=== PATIENT | female | born 1960 | race Caucasian/White ===

== ENCOUNTER 2018-06-16 18:31 | Emergency (ER) | payer MEDICAID ==
[~2018-06-16] VITALS: Ht 170.2 cm; Wt 51.3 kg
[~2018-06-16 18:31] MED LIST: CLIN150C8 PO; CYCL10TA40 PO; HCTZ25T PO; METF-950 PO; PANT20TA3 PO; POTA8TAB8 PO; TOPI50TA24 PO; TRAM50TA2 PO
[2018-06-16 19:04] LABS: BASOPHILS # (AUTO) 0.1 X10'3 (0-0.2); BASOPHILS % (AUTO) 0.9 % (0-1); EOSINOPHILS # (AUTO) 0.1 X10'3 (0-0.9); EOSINOPHILS % (AUTO) 1.7 % (0-6); HEMATOCRIT 42.8 % (35.0-45.0); HEMOGLOBIN 14.5 g/dl (12.0-16.0); LYMPHOCYTES # (AUTO) 2.9 X10'3 (1.1-4.8); LYMPHOCYTES % (AUTO) 38.3 % (21-51); MEAN CORPUSCULAR HEMOGLOBIN 31.3 PG (27.0-31.0); MEAN CORPUSCULAR HGB CONC 33.9 % (33.0-36.5); MEAN CORPUSCULAR VOLUME 92.2 FL (78-98); MONOCYTES # (AUTO) 0.5 X10'3 (0-0.9); MONOCYTES % (AUTO) 6.3 % (2-12); NEUTROPHILS # (AUTO) 3.9 X10'3 (1.8-7.7); NEUTROPHILS % (AUTO) 52.8 % (42-75); PLATELET COUNT 217 X10'3 (140-440); RED BLOOD COUNT 4.64 X10'6 (4.20-5.60); RED CELL DISTRIBUTION WIDTH 13.3 % (11.5-14.5); WHITE BLOOD COUNT 7.5 X10'3 (4.5-11.0)
[2018-06-16 19:17] LABS: D-DIMER 0.53 MG/L FEU (0-0.50)
[2018-06-16 19:19] LABS: ALANINE AMINOTRANSFERASE 61 U/L (12-78); ALBUMIN 3.6 G/DL (3.4-5.0); ALKALINE PHOSPHATASE 127 IU/L (46-116); ANION GAP 10 (8-16); ASPARTATE AMINO TRANSFERASE 51 U/L (10-37); BILIRUBIN,TOTAL 0.3 MG/DL (0.1-1.0); BLOOD UREA NITROGEN 11 MG/DL (7-18); CALCIUM 8.6 MG/DL (8.5-10.1); CHLORIDE 101 MMOL/L (99-107); CREATININE 0.92 MG/DL (0.40-0.90); GLUCOSE 271 MG/DL (70-104); POTASSIUM 3.6 MMOL/L (3.5-5.1); SODIUM 138 MMOL/L (135-145); TOTAL CARBON DIOXIDE 26.9 MMOL/L (24-32); TOTAL PROTEIN 7.3 G/DL (6.4-8.2); eGFR 63 ML/MIN
[2018-06-16 19:26] LABS: MAGNESIUM 1.9 MG/DL (1.5-2.4); PHOSPHORUS 3.3 MG/DL (2.3-4.5)
[2018-06-16 19:30] LABS: CLARITY,URINE CLEAR (Clear); COLOR,URINE YELLOW (Yellow); GLUCOSE, URINE 500 mg/dl (Neg); KETONES,URINE NEGATIVE (Neg); LEUKOCYTE ESTERASE ,URINE NEGATIVE (Neg); NITRITES, URINE POSITIVE (Neg); OCCULT BLOOD,URINE TRACE-LYSED (Neg); PROTEIN,URINE NEGATIVE (Neg); UROBILINOGEN,URINE 0.2 E.U/dL (0.2-1.0)
[2018-06-16 19:36] LABS: UA COLLECTION TYPE VOIDED
[2018-06-16 19:37] LABS: WBC,URINE 0-4 /HPF (0-4)
[2018-06-16 19:38] LABS: BACTERIA,URINE 4+ /HPF (Neg); MUCUS STRANDS NONE SEEN /LPF (Neg); RBC,URINE 0-2 /HPF (0-2); SQUAMOUS EPITHELIAL CELL,UR FEW /LPF (FEW); WBC CLUMPS,URINE FEW /HPF (NEGATIVE)
[2018-06-16] MEDS ORDERED: DOXY100C43 PO (19:39)
[2018-06-16] MEDS ORDERED: PRED20TA PO (19:39)
[2018-06-16] MEDS ORDERED: ONDA4TAB12 PO (19:39)
[2018-06-16] MEDS: doxycycline hyclate 100mg tablet.DR PO STA (19:53)
[2018-06-16] MEDS: predniSONE 20 mg tablet PO ONE (19:53)
[2018-06-16 19:59] VITALS: BP 128/66
== END 2018-06-16 20:02 | disposition home or self-care (01) ==
LOC: ER 18:31
DX: J20.9 Acute bronchitis, unspecified (principal); E11.65 Type 2 diabetes mellitus with hyperglycemia; G89.29 Other chronic pain; F17.210 Nicotine dependence, cigarettes, uncomplicated; Z90.49 Acquired absence of other specified parts of digestive tract; Z90.710 Acquired absence of both cervix and uterus; Z98.890 Other specified postprocedural states; Z79.899 Other long term (current) drug therapy
CPT/HCPCS: 36415; 71046; 80053; 81001; 83735; 83880; 84100; 84484; 85025; 85379; 87077; 87088; 87186; 93005; 99285; J7512

== ENCOUNTER 2019-02-07 10:45 | Emergency (ER) | payer MEDICAID ==
[~2019-02-07] VITALS: Ht 167.6 cm; Wt 80.9 kg
[~2019-02-07 10:45] MED LIST changes: +ONDA4TAB12 PO
[2019-02-07 10:59] VITALS: BP 143/92
[2019-02-07] MEDS ORDERED: ketorolac trometh inj. 60 MG/2 ML VIAL IM ONE (11:30)
--- NOTE | 2019-02-07 13:03 | NUR ---
blanca wrapped left ankle and knee, put post op shoe over left foot
== END 2019-02-07 13:03 | disposition home or self-care (01) ==
LOC: ER 10:45
DX: S90.112A Contusion of left great toe without damage to nail, initial encounter (principal); M54.5 Low back pain; M79.672 Pain in left foot; M54.2 Cervicalgia; M25.562 Pain in left knee; E11.9 Type 2 diabetes mellitus without complications; G89.29 Other chronic pain; Z90.49 Acquired absence of other specified parts of digestive tract; Z90.710 Acquired absence of both cervix and uterus; Z98.890 Other specified postprocedural states; Z88.8 Allergy status to other drugs, medicaments and biological substances; Z79.84 Long term (current) use of oral hypoglycemic drugs; Z79.899 Other long term (current) drug therapy; W10.8XXA Fall (on) (from) other stairs and steps, initial encounter; Y93.89 Activity, other specified; Y92.89 Other specified places as the place of occurrence of the external cause; Y99.8 Other external cause status
CPT/HCPCS: 72100; 73560; 73630; 96372; 99284; J1885

== ENCOUNTER 2019-02-24 14:57 | Emergency (ER) | payer MEDICAID ==
[~2019-02-24] VITALS: Ht 167.6 cm; Wt 80.9 kg
[2019-02-24 17:31] VITALS: BP 122/81
[2019-02-24] MEDS ORDERED: DICL100G15 TOP (17:49)
[2019-02-24] MEDS ORDERED: IBUP-1985 PO (17:49)
== END 2019-02-24 17:59 | disposition home or self-care (01) ==
LOC: ER 14:57
DX: M94.0 Chondrocostal junction syndrome [Tietze] (principal); E11.9 Type 2 diabetes mellitus without complications; G89.29 Other chronic pain; Z90.710 Acquired absence of both cervix and uterus; Z90.49 Acquired absence of other specified parts of digestive tract; Z98.890 Other specified postprocedural states; Z88.8 Allergy status to other drugs, medicaments and biological substances; Z79.2 Long term (current) use of antibiotics; Z79.899 Other long term (current) drug therapy
CPT/HCPCS: 71046; 93005; 99283

== ENCOUNTER 2019-03-24 20:26 | Emergency (ER) | payer MEDICAID ==
[~2019-03-24] VITALS: Ht 167.6 cm; Wt 71.5 kg
[~2019-03-24 20:26] MED LIST changes: +DICL100G15 TOP; +IBUP-1985 PO
[2019-03-24 21:04] VITALS: BP 140/79
[2019-03-24 21:16] LABS: BASOPHILS # (AUTO) 0.1 X10'3 (0-0.2); BASOPHILS % (AUTO) 0.8 % (0-1); EOSINOPHILS # (AUTO) 0.1 X10'3 (0-0.9); EOSINOPHILS % (AUTO) 1.5 % (0-6); HEMATOCRIT 44.8 % (35.0-45.0); HEMOGLOBIN 15.1 g/dl (12.0-16.0); LYMPHOCYTES # (AUTO) 2.8 X10'3 (1.1-4.8); LYMPHOCYTES % (AUTO) 34.9 % (21-51); MEAN CORPUSCULAR HEMOGLOBIN 31.4 PG (27.0-31.0); MEAN CORPUSCULAR HGB CONC 33.7 g/dL (33.0-36.5); MEAN PLATELET VOLUME 7.6 FL (7.4-10.4); MONOCYTES # (AUTO) 0.6 X10'3 (0-0.9); MONOCYTES % (AUTO) 8.1 % (2-12); NEUTROPHILS # (AUTO) 4.3 X10'3 (1.8-7.7); NEUTROPHILS % (AUTO) 54.7 % (42-75); PLATELET COUNT 213 X10'3 (140-440); RED BLOOD COUNT 4.82 X10'6 (4.20-5.60)
[2019-03-24 21:28] LABS: ANION GAP 11 (8-16); BLOOD UREA NITROGEN 10 MG/DL (7-18); BUN/CREATININE RATIO 11.8 (6.6-38.0); CHLORIDE 103 MMOL/L (99-107); CREATININE 0.85 MG/DL (0.40-0.90); GLUCOSE 188 MG/DL (70-104); PARTIAL THROMBOPLASTIN TIME 27 SECONDS (22-32); POTASSIUM 3.5 MMOL/L (3.5-5.1); SODIUM 138 MMOL/L (135-145); TOTAL CARBON DIOXIDE 23.7 MMOL/L (24-32)
[2019-03-24 21:29] LABS: ALANINE AMINOTRANSFERASE 50 U/L (12-78); ALBUMIN 3.4 G/DL (3.4-5.0); ALBUMIN/GLOBULIN RATIO 0.9 (1.1-1.5); ALKALINE PHOSPHATASE 105 IU/L (46-116); ASPARTATE AMINO TRANSFERASE 28 U/L (10-37); BILIRUBIN,TOTAL 0.3 MG/DL (0.1-1.0); CALCIUM 8.3 MG/DL (8.5-10.1); TOTAL PROTEIN 7.2 G/DL (6.4-8.2); eGFR 69 ML/MIN
== END 2019-03-24 23:51 | disposition home or self-care (01) ==
LOC: ER 20:27
DX: R55 Syncope and collapse (principal); R11.2 Nausea with vomiting, unspecified; E78.00 Pure hypercholesterolemia, unspecified; I10 Essential (primary) hypertension; E11.9 Type 2 diabetes mellitus without complications; G89.29 Other chronic pain; Z90.49 Acquired absence of other specified parts of digestive tract; Z90.710 Acquired absence of both cervix and uterus; Z98.890 Other specified postprocedural states; Z88.8 Allergy status to other drugs, medicaments and biological substances; Z79.84 Long term (current) use of oral hypoglycemic drugs; Z79.899 Other long term (current) drug therapy
CPT/HCPCS: 36415; 71045; 80053; 82948; 84484; 85025; 85610; 85730; 93005; 99284

== ENCOUNTER 2021-07-13 16:06 | Emergency (ER) | payer MEDICAID ==
[~2021-07-13] VITALS: Ht 170.2 cm; Wt 72.7 kg
[~2021-07-13 16:06] MED LIST changes: +METF-1203 PO; -METF-950 PO; +PANT20TA18 PO; -PANT20TA3 PO
[2021-07-13 16:52] VITALS: BP 129/78
[2021-07-13] MEDS ORDERED: HYDR-3965 PO (17:00)
== END 2021-07-13 18:06 | disposition home or self-care (01) ==
LOC: ER 16:07
DX: M25.461 Effusion, right knee (principal); M25.561 Pain in right knee; M71.21 Synovial cyst of popliteal space [Baker], right knee; E78.00 Pure hypercholesterolemia, unspecified; I10 Essential (primary) hypertension; E11.9 Type 2 diabetes mellitus without complications; G89.29 Other chronic pain; Z90.49 Acquired absence of other specified parts of digestive tract; Z90.710 Acquired absence of both cervix and uterus; Z88.8 Allergy status to other drugs, medicaments and biological substances; Z79.899 Other long term (current) drug therapy
CPT/HCPCS: 73564; 99283

== ENCOUNTER 2021-07-27 10:43 | Emergency (ER) | payer MEDICAID ==
[~2021-07-27] VITALS: Ht 170.2 cm; Wt 72.7 kg
[~2021-07-27 10:43] MED LIST changes: +HYDR-3965 PO
[2021-07-27 11:28] VITALS: BP 111/77
[2021-07-27] MEDS ORDERED: BENZ-38 PO (14:06)
== END 2021-07-27 14:23 | disposition home or self-care (01) ==
LOC: ER 10:45
DX: J06.9 Acute upper respiratory infection, unspecified (principal); R50.9 Fever, unspecified; R05.9 Cough, unspecified; E78.00 Pure hypercholesterolemia, unspecified; I10 Essential (primary) hypertension; E11.9 Type 2 diabetes mellitus without complications; G89.29 Other chronic pain; F17.200 Nicotine dependence, unspecified, uncomplicated; Z90.49 Acquired absence of other specified parts of digestive tract; Z90.710 Acquired absence of both cervix and uterus; Z98.890 Other specified postprocedural states; Z88.8 Allergy status to other drugs, medicaments and biological substances; Z79.2 Long term (current) use of antibiotics; Z79.899 Other long term (current) drug therapy
CPT/HCPCS: 71045; 99283

== ENCOUNTER 2022-08-15 11:22 | Emergency (ER) | payer MEDICAID ==
[~2022-08-15] VITALS: Ht 167.6 cm; Wt 80.0 kg
[~2022-08-15 11:22] MED LIST changes: -HYDR-3965 PO
[2022-08-15 11:40] LABS: BASOPHILS % (AUTO) 0.6 % (0-1); EOSINOPHILS # (AUTO) 0.1 X10'3 (0-0.9); EOSINOPHILS % (AUTO) 1.6 % (0-6); HEMATOCRIT 37.7 % (35.0-45.0); LYMPHOCYTES # (AUTO) 1.4 X10'3 (1.1-4.8); LYMPHOCYTES % (AUTO) 29.8 % (21-51); MEAN CORPUSCULAR HEMOGLOBIN 26.9 PG (27.0-31.0); MEAN CORPUSCULAR HGB CONC 31.8 g/dL (33.0-36.5); MEAN CORPUSCULAR VOLUME 84.7 FL (78-98); MEAN PLATELET VOLUME 7.8 FL (7.4-10.4); MONOCYTES # (AUTO) 0.4 X10'3 (0-0.9); MONOCYTES % (AUTO) 7.9 % (2-12); NEUTROPHILS # (AUTO) 2.9 X10'3 (1.8-7.7); NEUTROPHILS % (AUTO) 60.1 % (42-75); PLATELET COUNT 131 X10'3 (140-440); RED BLOOD COUNT 4.45 X10'6 (4.20-5.60); RED CELL DISTRIBUTION WIDTH 15.3 % (11.5-14.5); WHITE BLOOD COUNT 4.8 X10'3 (4.5-11.0)
[2022-08-15 11:51] LABS: ALBUMIN 3.6 G/DL (3.4-5.0); ANION GAP 16 (8-16); BLOOD UREA NITROGEN 14 MG/DL (7-18); BUN/CREATININE RATIO 14.1 (6.6-38.0); CALCIUM 8.9 MG/DL (8.5-10.1); CHLORIDE 97 MMOL/L (99-107); CREATININE 0.99 MG/DL (0.40-0.90); MAGNESIUM 1.6 MG/DL (1.5-2.4); POTASSIUM 4.1 MMOL/L (3.5-5.1); SODIUM 135 MMOL/L (135-145); TOTAL CARBON DIOXIDE 21.9 MMOL/L (24-32); eGFR 57 ML/MIN
[2022-08-15 12:12] LABS: ALANINE AMINOTRANSFERASE 45 U/L (12-78); ALBUMIN/GLOBULIN RATIO 0.9 (1.1-1.5); ALKALINE PHOSPHATASE 159 IU/L (46-116); ASPARTATE AMINO TRANSFERASE 38 U/L (10-37); BILIRUBIN,TOTAL 0.4 MG/DL (0.1-1.0); TOTAL PROTEIN 7.8 G/DL (6.4-8.2)
[2022-08-15 12:15] LABS: GLUCOSE 450 MG/DL (70-104)
--- NOTE | 2022-08-15 12:15 | NUR ---
critical lab called glucose 450ml.
[2022-08-15] MEDS ORDERED: insulin regular, human 10 units/0.1 ml syringe SQ ONE (12:40)
[2022-08-15 12:46] VITALS: BP 123/70
== END 2022-08-15 13:15 | disposition home or self-care (01) ==
LOC: ER 11:23
DX: R07.81 Pleurodynia (principal); E11.9 Type 2 diabetes mellitus without complications; G89.29 Other chronic pain; M54.9 Dorsalgia, unspecified; E78.00 Pure hypercholesterolemia, unspecified; Z98.890 Other specified postprocedural states; Z88.8 Allergy status to other drugs, medicaments and biological substances; Z79.899 Other long term (current) drug therapy; Z79.1 Long term (current) use of non-steroidal anti-inflammatories (NSAID)
CPT/HCPCS: 36415; 71045; 80053; 82948; 83735; 83880; 84484; 85025; 93005; 99285

== ENCOUNTER 2023-06-02 18:18 | Emergency (ER) | payer MEDICAID ==
[~2023-06-02] VITALS: Ht 167.6 cm; Wt 70.8 kg
[~2023-06-02 18:18] MED LIST changes: +CLIN-214 PO; -CLIN150C8 PO; +TOPI-253 PO; -TOPI50TA24 PO
[2023-06-02 18:19] VITALS: BP 121/80; PULSE 89; RESP 16; TEMP 98.6; O2SAT 99
== END 2023-06-02 20:14 | disposition left against medical advice (07) ==
LOC: ER 18:19
DX: K08.89 Other specified disorders of teeth and supporting structures (principal); Z53.21 Procedure and treatment not carried out due to patient leaving prior to being seen by health care provider
CPT/HCPCS: 99281

== ENCOUNTER 2023-07-19 20:44 | Emergency (ER) | payer MEDICAID ==
[~2023-07-19] VITALS: Ht 154.9 cm; Wt 71.0 kg
[2023-07-19 20:47] VITALS: TEMP 99.6
[2023-07-19] MEDS ORDERED: normal saline 1000ml 1,000 ML IV ONE (21:00)
[2023-07-19] MEDS ORDERED: ondansetron/PF 4mg/2ml inj IV ONE (21:00)
[2023-07-19 21:20] LABS: BASOPHILS % (AUTO) 0.7 % (0-1); EOSINOPHILS # (AUTO) 0.1 X10'3 (0-0.9); EOSINOPHILS % (AUTO) 1.9 % (0-6); HEMATOCRIT 39.2 % (35.0-45.0); HEMOGLOBIN 13.3 g/dl (12.0-16.0); LYMPHOCYTES # (AUTO) 1.9 X10'3 (1.1-4.8); LYMPHOCYTES % (AUTO) 30.8 % (21-51); MEAN CORPUSCULAR VOLUME 91.2 FL (78-98); MEAN PLATELET VOLUME 7.8 FL (7.4-10.4); MONOCYTES # (AUTO) 0.3 X10'3 (0-0.9); MONOCYTES % (AUTO) 4.8 % (2-12); NEUTROPHILS # (AUTO) 3.8 X10'3 (1.8-7.7); NEUTROPHILS % (AUTO) 61.8 % (42-75); PLATELET COUNT 164 X10'3 (140-440); RED CELL DISTRIBUTION WIDTH 15.7 % (11.5-14.5); WHITE BLOOD COUNT 6.2 X10'3 (4.5-11.0)
[2023-07-19 21:38] VITALS: BP 110/73; PULSE 72; RESP 16; O2SAT 98
[2023-07-19 22:06] LABS: ALANINE AMINOTRANSFERASE 37 U/L (12-78); ALBUMIN 3.2 G/DL (3.4-5.0); ALKALINE PHOSPHATASE 94 IU/L (46-116); ANION GAP 10 (8-16); ASPARTATE AMINO TRANSFERASE 38 U/L (10-37); BILIRUBIN,TOTAL 0.4 MG/DL (0.1-1.0); BLOOD UREA NITROGEN 7 MG/DL (7-18); BUN/CREATININE RATIO 10.4 (10.0-20.0); CALCIUM 7.9 MG/DL (8.5-10.1); CHLORIDE 104 MMOL/L (99-107); CREATININE 0.67 MG/DL (0.40-0.90); ETHANOL 110 MG/DL (<10); GLUCOSE 118 MG/DL (70-104); POTASSIUM 3.3 MMOL/L (3.5-5.1); SODIUM 140 MMOL/L (135-145); TOTAL CARBON DIOXIDE 26.3 MMOL/L (24-32); TOTAL PROTEIN 6.3 G/DL (6.4-8.2); eCRCL 67 ML/MIN; eGFR 89 ML/MIN
== END 2023-07-19 21:59 | disposition home or self-care (01) ==
LOC: ER 20:45
DX: F10.129 Alcohol abuse with intoxication, unspecified (principal); R41.82 Altered mental status, unspecified; R47.81 Slurred speech; E78.00 Pure hypercholesterolemia, unspecified; E11.9 Type 2 diabetes mellitus without complications; G89.29 Other chronic pain; Z72.89 Other problems related to lifestyle; Z90.49 Acquired absence of other specified parts of digestive tract; Z90.710 Acquired absence of both cervix and uterus; Z88.8 Allergy status to other drugs, medicaments and biological substances; Z79.2 Long term (current) use of antibiotics; Z79.899 Other long term (current) drug therapy; Y90.9 Presence of alcohol in blood, level not specified
CPT/HCPCS: 36415; 80053; 80320; 82948; 85025; 96374; 99284; J2405; J7030; 93005

== ENCOUNTER 2023-08-09 13:36 | Emergency (ER) | payer MEDICAID ==
[~2023-08-09] VITALS: Ht 167.6 cm; Wt 70.2 kg
[2023-08-09 13:37] VITALS: BP 130/67; PULSE 71; TEMP 98.4; O2SAT 99
[2023-08-09 14:14] VITALS: RESP 16
[2023-08-09] MEDS ORDERED: NAPR-56 PO (15:27)
[2023-08-09] MEDS ORDERED: CYCL-1 PO (15:27)
--- NOTE | 2023-08-09 16:49 | NUR ---
I have reviewed and agree with all interventions, assessments performed and documented by Giselle NICOLE LVN.
== END 2023-08-09 15:41 | disposition home or self-care (01) ==
LOC: ER 13:36
DX: R07.81 Pleurodynia (principal); E78.00 Pure hypercholesterolemia, unspecified; E11.9 Type 2 diabetes mellitus without complications; G89.29 Other chronic pain; Z90.49 Acquired absence of other specified parts of digestive tract; Z90.710 Acquired absence of both cervix and uterus; Z98.890 Other specified postprocedural states; Z72.89 Other problems related to lifestyle; Z88.1 Allergy status to other antibiotic agents; Z88.8 Allergy status to other drugs, medicaments and biological substances; Z79.84 Long term (current) use of oral hypoglycemic drugs; Z79.899 Other long term (current) drug therapy
CPT/HCPCS: 71101; 99284

== ENCOUNTER 2024-06-10 16:24 | Inpatient (IN) | payer OTHER, MEDICAID ==
[2024-06-09] MEDS: tenecteplase 50mg kit IV ONE (17:37)
[~2024-06-10] VITALS: Ht 167.6 cm; Wt 68.2 kg
[~2024-06-10 16:24] MED LIST changes: +CYCL-1 PO; +ONDA-243 PO; -ONDA4TAB12 PO; -TOPI-253 PO; +TOPI-95 PO
[2024-06-10] MEDS ORDERED: iohexol 350MG/ML 100ml bottle IV ONE (17:28)
[2024-06-10] MEDS: ondansetron/PF 4mg/2ml inj IV ONE (17:38)
[2024-06-10] MEDS: morphine 4 MG/ML inj SYRINge IV ONE (17:39)
[2024-06-10 17:49] LABS: ALBUMIN 3.7 G/DL (3.4-5.0); ANION GAP 12 (8-16); BLOOD UREA NITROGEN 8 MG/DL (7-18); BUN/CREATININE RATIO 9.6 (10.0-20.0); CALCIUM 8.2 MG/DL (8.5-10.1); CHLORIDE 102 MMOL/L (99-107); CREATININE 0.83 MG/DL (0.40-0.90); GLUCOSE 140 MG/DL (70-104); POTASSIUM 3.5 MMOL/L (3.5-5.1); SODIUM 137 MMOL/L (135-145); TOTAL CARBON DIOXIDE 22.7 MMOL/L (24-32); eCRCL 66 ML/MIN; eGFR 70 ML/MIN
[2024-06-10 17:52] LABS: BASOPHILS # (AUTO) 0.1 X10'3 (0-0.2); BASOPHILS % (AUTO) 0.9 % (0-1); EOSINOPHILS # (AUTO) 0.1 X10'3 (0-0.9); EOSINOPHILS % (AUTO) 1.2 % (0-6); HEMATOCRIT 39.1 % (35.0-45.0); HEMOGLOBIN 13.2 g/dl (12.0-16.0); LYMPHOCYTES # (AUTO) 1.8 X10'3 (1.1-4.8); LYMPHOCYTES % (AUTO) 27.1 % (21-51); MEAN CORPUSCULAR HEMOGLOBIN 30.6 PG (27.0-31.0); MEAN CORPUSCULAR HGB CONC 33.8 g/dL (33.0-36.5); MEAN CORPUSCULAR VOLUME 90.4 FL (78-98); MEAN PLATELET VOLUME 8.3 FL (7.4-10.4); MONOCYTES # (AUTO) 0.3 X10'3 (0-0.9); MONOCYTES % (AUTO) 5.3 % (2-12); NEUTROPHILS # (AUTO) 4.3 X10'3 (1.8-7.7); NEUTROPHILS % (AUTO) 65.5 % (42-75); PLATELET COUNT 175 X10'3 (140-440); RED BLOOD COUNT 4.32 X10'6 (4.20-5.60); RED CELL DISTRIBUTION WIDTH 14.9 % (11.5-14.5); WHITE BLOOD COUNT 6.5 X10'3 (4.5-11.0)
[2024-06-10 18:23] LABS: APTT 26 SECONDS (22-32); INR 1.1 INR
[2024-06-10 19:39] LABS: BILIRUBIN,URINE NEGATIVE (Neg); CLARITY,URINE CLEAR (Clear); COLOR,URINE YELLOW (Yellow); GLUCOSE, URINE NEGATIVE (Neg); KETONES,URINE NEGATIVE (Neg); LEUKOCYTE ESTERASE ,URINE NEGATIVE (Neg); NITRITES, URINE POSITIVE (Neg); OCCULT BLOOD,URINE NEGATIVE (Neg); PROTEIN,URINE NEGATIVE (Neg); UROBILINOGEN,URINE 0.2 E.U/dL (0.2-1.0)
[2024-06-10 19:43] LABS: URINE HCG NEGATIVE (NEG)
[2024-06-10 19:45] LABS: UA COLLECTION TYPE CLN CATCH MIDSTREAM
[2024-06-10 20:10] LABS: BACTERIA,URINE 3+ /HPF (Neg); MUCUS STRANDS NONE SEEN /LPF (Neg); RBC,URINE 0-2 /HPF (0-2); SQUAMOUS EPITHELIAL CELL,UR FEW /LPF (FEW); WBC,URINE 0-4 /HPF (0-4)
[2024-06-10] MEDS ORDERED: potassium Cl 40MEQ/1/2NS 520ml 520 ML IV PRN (20:40)
[2024-06-10] MEDS ORDERED: magnesium hydroxide 30ml (MOM) UD suspension PO PRN (20:40)
[2024-06-10] MEDS ORDERED: mag hydrox/Alum hydrox/simeth 30ml oral suspension PO PRN (20:40)
[2024-06-10] MEDS ORDERED: PERFLUTREN PROTEIN-A MICROSPHR (Optison) 0.22 MG/ML 3ML VIAL IV PRN (20:40)
[2024-06-10] MEDS ORDERED: magnesium sulf-water 2g/50mL 50 ML IV PRN (20:40)
[2024-06-10] MEDS ORDERED: potassium Cl 20 mEq SR tablet PO PRN ×2 (20:40)
[2024-06-10] MEDS ORDERED: magnesium sulf-water 4G/100mL 100 ML IV PRN (20:40)
[2024-06-10 21:26] LABS: HEMOGLOBIN A1C 5.8 % (4.5-6.2)
[2024-06-10] MEDS: normal saline 1000ml 1,000 ML IV SCH (21:34)
[2024-06-10] MEDS ORDERED: GABAPENTIN (22:13)
[2024-06-10] MEDS ORDERED: SIMV-42 PO (22:13)
[2024-06-10] MEDS ORDERED: FEXO-310 PO (22:13)
[2024-06-10] MEDS ORDERED: SEMA1PEN3 SQ (22:13)
[2024-06-11] VITALS (14 sets, daily range): BP systolic 88–125; BP diastolic 55–76; PULSE 64–83; RESP 10–17; TEMP 97.3–98; O2SAT 95–99
[2024-06-11 02:54] LABS: BASOPHILS % (AUTO) 0.7 % (0-1); EOSINOPHILS # (AUTO) 0.1 X10'3 (0-0.9); EOSINOPHILS % (AUTO) 2.8 % (0-6); HEMATOCRIT 34.8 % (35.0-45.0); HEMOGLOBIN 11.9 g/dl (12.0-16.0); LYMPHOCYTES % (AUTO) 43.1 % (21-51); MEAN CORPUSCULAR HEMOGLOBIN 30.8 PG (27.0-31.0); MEAN CORPUSCULAR HGB CONC 34.3 g/dL (33.0-36.5); MONOCYTES # (AUTO) 0.4 X10'3 (0-0.9); MONOCYTES % (AUTO) 7.6 % (2-12); NEUTROPHILS # (AUTO) 2.1 X10'3 (1.8-7.7); NEUTROPHILS % (AUTO) 45.8 % (42-75); PLATELET COUNT 148 X10'3 (140-440); RED BLOOD COUNT 3.86 X10'6 (4.20-5.60); RED CELL DISTRIBUTION WIDTH 14.6 % (11.5-14.5); WHITE BLOOD COUNT 4.7 X10'3 (4.5-11.0)
[2024-06-11 03:13] LABS: ALANINE AMINOTRANSFERASE 17 U/L (12-78); ALBUMIN 3.1 G/DL (3.4-5.0); ALKALINE PHOSPHATASE 78 IU/L (46-116); ANION GAP 10 (8-16); ASPARTATE AMINO TRANSFERASE 14 U/L (10-37); BILIRUBIN,TOTAL 0.3 MG/DL (0.1-1.0); BLOOD UREA NITROGEN 7 MG/DL (7-18); BUN/CREATININE RATIO 10.3 (10.0-20.0); CHLORIDE 107 MMOL/L (99-107); CHOL/HDL RATIO 1.9 (0.00-4.99); CHOLESTEROL 102 MG/DL (0-200); CREATININE 0.68 MG/DL (0.40-0.90); GLUCOSE 90 MG/DL (70-104); HDL CHOLESTEROL 55 MG/DL (35-60); LDL CHOLESTEROL 44 MG/DL (50-100); MAGNESIUM 1.4 MG/DL (1.5-2.4); POTASSIUM 3.6 MMOL/L (3.5-5.1); SODIUM 143 MMOL/L (135-145); TOTAL PROTEIN 6.2 G/DL (6.4-8.2); TRIGLYCERIDES 85 MG/DL (20-135); eCRCL 80 ML/MIN; eGFR 88 ML/MIN
[2024-06-11] MEDS: ondansetron/PF 4mg/2ml inj IV PRN (04:55)
[2024-06-11] MEDS: morphine 2 MG/ML inj. syringe IV PRN (04:55)
[2024-06-11] MEDS: gabapentin 400mg capsule PO ONE (06:52)
[2024-06-11] MEDS ORDERED: tenecteplase 50mg kit IV ONE (08:00)
[2024-06-11] MEDS: K and/or MAG REPLACEMENT MC SCH (08:00)
[2024-06-11] MEDS ORDERED: LOSA100T58 PO (10:51)
[2024-06-11] MEDS ORDERED: LANS30CA56 PO (10:51)
[2024-06-11] MEDS ORDERED: GABA300C PO (10:51)
[2024-06-11] MEDS ORDERED: EZET10TA48 PO (10:51)
[2024-06-11] MEDS ORDERED: METF-900 PO (10:51)
[2024-06-11] MEDS ORDERED: CHOL200042 PO (10:51)
[2024-06-11] MEDS ORDERED: MULT-1085 PO (10:51)
[2024-06-11] MEDS ORDERED: OMEG10006 PO (10:51)
[2024-06-11] MEDS ORDERED: glucagon, human recombinant 1mg kit SUBCUT PRN (10:55)
[2024-06-11] MEDS ORDERED: DEXTROSE 15 GM of carb/4 tabs (each vial/BOTTLE has 4 tablets) PO PRN ×2 (10:55)
[2024-06-11] MEDS ORDERED: dextrose 50%-water 50ml dispensing syringe IV PRN ×2 (10:55)
[2024-06-11] MEDS ORDERED: INSULIN LISPRO 100 UNIT/ML INSULN.PEN MULTI-DOSE SQ SCH ×2 (12:00→13:00)
[2024-06-11] MEDS: docusate sod 100mg capsule PO SCH (13:06)
[2024-06-11] MEDS: nicotine 14mg patch - 24hr TD SCH (13:06)
[2024-06-11] MEDS: magnesium Cl slow-release 64mg tablet PO PRN (13:07)
[2024-06-11] MEDS: acetaminophen 325mg tablet PO PRN (13:16)
[2024-06-11] MEDS: gabapentin 300mg capsule PO SCH (20:11)
[2024-06-11] MEDS ORDERED: insulin glargine (Lantus) pen - multi-dose SQ SCH (21:00)
[2024-06-11] MEDS: FLU VACC TS2024-25(6MOS UP)/PF 45 MCG/0.5 ML SYRINGE IMVAC ONE (23:38)
[2024-06-12] VITALS: BP 112/71; PULSE 66; RESP 14; TEMP 97.4; O2SAT 95
[2024-06-12 04:43] VITALS: BP 120/75; PULSE 67; RESP 16; O2SAT 98
[2024-06-12 06:44] LABS: BASOPHILS % (AUTO) 0.9 % (0-1); EOSINOPHILS # (AUTO) 0.1 X10'3 (0-0.9); EOSINOPHILS % (AUTO) 3.1 % (0-6); HEMATOCRIT 36.2 % (35.0-45.0); HEMOGLOBIN 12.2 g/dl (12.0-16.0); LYMPHOCYTES # (AUTO) 1.4 X10'3 (1.1-4.8); MEAN CORPUSCULAR HEMOGLOBIN 30.1 PG (27.0-31.0); MEAN CORPUSCULAR HGB CONC 33.8 g/dL (33.0-36.5); MEAN CORPUSCULAR VOLUME 89.3 FL (78-98); MONOCYTES # (AUTO) 0.3 X10'3 (0-0.9); NEUTROPHILS # (AUTO) 2.4 X10'3 (1.8-7.7); PLATELET COUNT 144 X10'3 (140-440); RED BLOOD COUNT 4.05 X10'6 (4.20-5.60); RED CELL DISTRIBUTION WIDTH 14.8 % (11.5-14.5); WHITE BLOOD COUNT 4.3 X10'3 (4.5-11.0)
[2024-06-12 07:38] LABS: ALANINE AMINOTRANSFERASE 25 U/L (12-78); ALBUMIN 3.3 G/DL (3.4-5.0); ALKALINE PHOSPHATASE 90 IU/L (46-116); ANION GAP 9 (8-16); ASPARTATE AMINO TRANSFERASE 21 U/L (10-37); BILIRUBIN,TOTAL 0.2 MG/DL (0.1-1.0); BLOOD UREA NITROGEN 10 MG/DL (7-18); BUN/CREATININE RATIO 14.7 (10.0-20.0); CALCIUM 8.3 MG/DL (8.5-10.1); CHLORIDE 106 MMOL/L (99-107); CREATININE 0.68 MG/DL (0.40-0.90); GLUCOSE 106 MG/DL (70-104); POTASSIUM 3.6 MMOL/L (3.5-5.1); SODIUM 139 MMOL/L (135-145); TOTAL CARBON DIOXIDE 24.1 MMOL/L (24-32); TOTAL PROTEIN 6.7 G/DL (6.4-8.2); eCRCL 80 ML/MIN; eGFR 88 ML/MIN
[2024-06-12 09:45] VITALS: RESP 16
[2024-06-12] MEDS ORDERED: AMOX500C2 PO (10:09)
[2024-06-12] MEDS ORDERED: DIF150T PO (10:09)
[2024-06-12] MEDS ORDERED: NICO-631 TD (10:09)
[2024-06-12] MEDS ORDERED: ATOR40TA PO (10:09)
[2024-06-12] MEDS: FLU VACC TS2024-25(6MOS UP)/PF 45 MCG/0.5 ML SYRINGE IMVAC ONE (10:58)
[2024-06-13] MEDS ORDERED: metFORMIN 500mg tablet PO SCH (08:00)
== END 2024-06-12 10:30 | disposition home or self-care (01) | DRG 63 ==
LOC: ER 16:24 → ED HOLD 20:50 → EDBEDREQ 22:00 → CICU 2S 06-11 07:52 → ORTHO 4S 06-12 01:18
PROVIDERS: ADMIT Student in an Organized Health Care Education/Training Program; ATTEND Internal Medicine Critical Care Medicine
PROC: 3E03317 Introduction of Other Thrombolytic into Peripheral Vein, Percutaneous Approach (ICD-10-PCS; principal; 2024-06-10)
PROC: B3251ZZ Computerized Tomography (CT Scan) of Bilateral Common Carotid Arteries using Low Osmolar Contrast (ICD-10-PCS; 2024-06-10)
PROC: B32G1ZZ Computerized Tomography (CT Scan) of Bilateral Vertebral Arteries using Low Osmolar Contrast (ICD-10-PCS; 2024-06-10)
PROC: B32R1ZZ Computerized Tomography (CT Scan) of Intracranial Arteries using Low Osmolar Contrast (ICD-10-PCS; 2024-06-10)
PROC: B3281ZZ Computerized Tomography (CT Scan) of Bilateral Internal Carotid Arteries using Low Osmolar Contrast (ICD-10-PCS; 2024-06-10)
PROC: 3E02340 Introduction of Influenza Vaccine into Muscle, Percutaneous Approach (ICD-10-PCS; 2024-06-12)
DX: I63.9 Cerebral infarction, unspecified (principal); E78.00 Pure hypercholesterolemia, unspecified; G89.29 Other chronic pain; M54.9 Dorsalgia, unspecified; E11.9 Type 2 diabetes mellitus without complications; Z90.710 Acquired absence of both cervix and uterus; Z79.84 Long term (current) use of oral hypoglycemic drugs; Z90.49 Acquired absence of other specified parts of digestive tract; Z88.1 Allergy status to other antibiotic agents; Z91.040 Latex allergy status; Z79.899 Other long term (current) drug therapy; Z23 Encounter for immunization
CPT/HCPCS: 36415; 70450; 70496; 70498; 70551; 71045; 80048; 80053; 80061; 81001; 81025; 82948; 83036; 83735; 84484; 85025; 85610; 85730; 86704; 86705; 86706; 87340; 90686; 92508; 92616; 93005; 93306; 96374; 96375; 97161; 97530; 99291; A6209; A6213; G0378; J1815; J2270; J2405; J3101; J7030; Q9967

== ENCOUNTER 2024-06-21 09:47 | Emergency (ER) | payer OTHER, MEDICAID ==
[~2024-06-21] VITALS: Ht 172.7 cm; Wt 68.1 kg
[~2024-06-21 09:47] MED LIST changes: +AMOX500C2 PO; +ATOR40TA PO; +CHOL200042 PO; -CLIN-214 PO; -CYCL-1 PO; -DICL100G15 TOP; +GABA300C PO; -IBUP-1985 PO; +LANS30CA56 PO; +LOSA100T58 PO; -METF-1203 PO; +METF-900 PO; +MULT-1085 PO; +NICO-631 TD; +OMEG10006 PO; -ONDA-243 PO; -PANT20TA18 PO; -POTA8TAB8 PO; -TRAM50TA2 PO
[2024-06-21 10:05] LABS: BASOPHILS % (AUTO) 0.8 % (0-1); EOSINOPHILS # (AUTO) 0.1 X10'3 (0-0.9); EOSINOPHILS % (AUTO) 2.4 % (0-6); HEMATOCRIT 36.5 % (35.0-45.0); HEMOGLOBIN 12.4 g/dl (12.0-16.0); LYMPHOCYTES # (AUTO) 1.9 X10'3 (1.1-4.8); MEAN CORPUSCULAR HEMOGLOBIN 30.4 PG (27.0-31.0); MEAN CORPUSCULAR VOLUME 89.5 FL (78-98); MONOCYTES # (AUTO) 0.3 X10'3 (0-0.9); MONOCYTES % (AUTO) 6.1 % (2-12); NEUTROPHILS # (AUTO) 2.9 X10'3 (1.8-7.7); NEUTROPHILS % (AUTO) 54.7 % (42-75); PLATELET COUNT 179 X10'3 (140-440); RED BLOOD COUNT 4.08 X10'6 (4.20-5.60); RED CELL DISTRIBUTION WIDTH 14.7 % (11.5-14.5); WHITE BLOOD COUNT 5.3 X10'3 (4.5-11.0)
[2024-06-21 10:12] LABS: ALBUMIN 3.5 G/DL (3.4-5.0); ANION GAP 9 (8-16); BLOOD UREA NITROGEN 9 MG/DL (7-18); BUN/CREATININE RATIO 12.3 (10.0-20.0); CALCIUM 8.4 MG/DL (8.5-10.1); CHLORIDE 106 MMOL/L (99-107); CREATININE 0.73 MG/DL (0.40-0.90); GLUCOSE 121 MG/DL (70-104); POTASSIUM 3.7 MMOL/L (3.5-5.1); SODIUM 140 MMOL/L (135-145); TOTAL CARBON DIOXIDE 25.1 MMOL/L (24-32); eCRCL 81 ML/MIN; eGFR 81 ML/MIN
[2024-06-21 10:17] LABS: APTT 26 SECONDS (22-32); INR 1.1 INR; PROTHROMBIN TIME 11.7 SECONDS (9.0-12.0)
[2024-06-21] MEDS: normal saline 1000ML IV soln IVB ONE (10:20)
[2024-06-21] MEDS: ketorolac trometh 15mg/ml vial 15 MG/ML ML IV ONE (10:21)
[2024-06-21] MEDS: LORazepam 2 mg/ml vial IV ONE (10:22)
[2024-06-21 12:08] VITALS: BP 111/69; PULSE 69; RESP 14; TEMP 97.8; O2SAT 100
== END 2024-06-21 12:09 | disposition home or self-care (01) ==
LOC: ER 09:47
DX: R51.9 Headache, unspecified (principal); R07.89 Other chest pain; M25.512 Pain in left shoulder; E78.00 Pure hypercholesterolemia, unspecified; E11.9 Type 2 diabetes mellitus without complications; G89.29 Other chronic pain; Z91.040 Latex allergy status; Z88.1 Allergy status to other antibiotic agents; Z79.2 Long term (current) use of antibiotics; Z79.899 Other long term (current) drug therapy; Z90.49 Acquired absence of other specified parts of digestive tract; Z90.710 Acquired absence of both cervix and uterus
CPT/HCPCS: 36415; 70450; 71045; 80048; 82948; 84484; 85025; 85610; 85730; 93005; 96361; 96374; 96375; 99285; J1885; J2060; J7030